=== PATIENT | female | born 2000 | race Caucasian/White ===

== ENCOUNTER 2023-09-09 12:45 | Inpatient (IN) | payer OTHER ==
[2023-09-09] MEDS: LACTATED RINGERS SOLUTION 500 ML IV ONE ×2 (14:00→17:00)
[2023-09-09 14:25] VITALS: BMI 29.2
[2023-09-09 14:50] LABS: BASO % 0.1 % (0-2.0); EOS % 1.1 % (0-4.5); HEMATOCRIT 31.2 % (32.4-45.2); HEMOGLOBIN 10.4 GM/dL (10.7-15.3); LYMPH % 14.3 % (8-40); MCH 30.3 pg (25.7-33.7); MCHC 33.4 g/dl (32.0-36.0); MEAN CELL VOLUME 90.7 fl (80-96); MEAN PLT VOLUME 7.7 fl (7.5-11.1); NEUT % 74.5 % (42.8-82.8); PLATELET COUNT 244 10^3/uL (134-434); RBC 3.44 M/mm3 (3.60-5.2); RDW 16.5 % (11.6-15.6); WHITE BLOOD COUNT 8.6 K/mm3 (4.0-10.0)
[2023-09-09 15:07] LABS: POTASSIUM 4.2 mmol/L (3.5-5.1)
[2023-09-09 15:08] LABS: CALCIUM 8.7 mg/dL (8.5-10.1)
[2023-09-09 15:09] LABS: BLOOD UREA NITROGEN 4.7 mg/dL (7-18)
[2023-09-09 15:13] LABS: CREATININE 0.4 mg/dL (0.55-1.3)
[2023-09-09] MEDS ORDERED: PENICILLIN G POTASSIUM 5,000,000 UNIT/250 ML BAG IVPB ONE (15:13)
[2023-09-09 15:21] LABS: INR 0.99 (0.83-1.09); PROTHROMBIN TIME (PATIENT) 11.2 SEC (9.7-13.0)
[2023-09-09 15:24] LABS: ACTIVATED PTT 24.2 SECONDS (25.2-36.5)
[2023-09-09] MEDS: PENICILLIN G POTASSIUM 5,000,000 (5Mm) UNIT VIAL IVPB ONE (15:25)
[2023-09-09 16:03] LABS: HIV INTERPRETATION NEGATIVE (NEGATIVE)
[2023-09-09] MEDS ORDERED: MAGNESIUM 4GM/H20 - 4 GM/100 ML IVPB IVPB ONE (16:11)
[2023-09-09] MEDS ORDERED: MAGNESIUM SULFATE 20GM/500ML - 20 GM/500 ML INFUS.BAG ONE (16:11)
[2023-09-09] MEDS: MAGNESIUM 4GM/H20 - 4 GM/100 ML IVPB IVPB ONE (16:25)
[2023-09-09] MEDS ORDERED: LACTATED RINGERS SOLUTION 1,000 ML IV SCH (17:00)
[2023-09-09] MEDS: MAGNESIUM SULFATE 20GM/500ML - 20 GM/500 ML INFUS.BAG IVPB SCH (17:00)
[2023-09-09 17:52] VITALS: BP 125/75; PULSE 98; RESP 18; TEMP 98.8
== END 2023-09-09 18:05 | disposition short-term general hospital (02) | DRG 563 ==
LOC: JDEL 12:45 → JLDR 13:56
PROVIDERS: ADMIT Obstetrics & Gynecology; ATTEND Obstetrics & Gynecology
DX: O60.03 Preterm labor without delivery, third trimester (principal); Z3A.29 29 weeks gestation of pregnancy
CPT/HCPCS: 36415; 76819-TC; 80048; 85025; 85384; 85610; 85730; 86780; 86850; 86900; 86901; 87389; 87635

== ENCOUNTER 2023-11-03 06:15 | Inpatient (IN) | payer OTHER ==
[2023-11-03] MEDS: CITRIC ACID/SODIUM CITRATE 30 ML UNIT-DOSE CUP PO ONE (08:00)
[2023-11-03] MEDS ORDERED: OXYTOCIN 30 UNITS in 0.9% NS 30 UNIT/500 ML INFUS.BAG IVPB ONE (08:00)
[2023-11-03] MEDS: DEXTROSE 5%-LACTATED RINGERS 1,000 ML IV SCH (08:00)
[2023-11-03] MEDS ORDERED: METOCLOPRAMIDE HCL INJECTION 10 MG/2 ML VIAL ONE (08:02)
[2023-11-03] MEDS ORDERED: DEXAMETHASONE SOD PHOSPHATE 4 MG/1 ML VIAL ONE (08:02)
[2023-11-03] MEDS ORDERED: FENTANYL CITRATE/PF 50 MCG/ML VIAL ONE (08:02)
[2023-11-03] MEDS ORDERED: ceFAZolin SODIUM 1 GM VIAL ONE (08:02)
[2023-11-03] MEDS ORDERED: PHENYLEPHRINE HCL 10 MG/1 ML SINGLE DOSE VIAL ONE (08:02)
[2023-11-03] MEDS ORDERED: morphine SULFATE/PF 1 MG/2 ML (2cc Syringe - QUVA) ONE (08:02)
[2023-11-03] MEDS ORDERED: ONDANSETRON 4 MG/2 ML VIAL ONE (08:02)
[2023-11-03 08:09] VITALS: BMI 32.1
[2023-11-03 09:58] LABS: CORD BASE EXCESS -4.7 mmol/L (0-2); CORD HCO3 21.4 mmHg (20-29); CORD PCO2 43.1 mmHg (30-78); CORD pH 7.314 (7.14-7.44)
[2023-11-03 10:02] LABS: CORD HCO3 23.7 mmHg (20-29); CORD PCO2 56.2 mmHg (30-78); CORD pH 7.243 (7.14-7.44)
[2023-11-03] MEDS ORDERED: KETOROLAC TROMETHAMINE 30 MG/1 ML VIAL ONE (10:08)
[2023-11-03] MEDS ORDERED: OXYTOCIN 20 UNITS in 0.9% NS 20 UNIT/1,000 ML INFUS.BAG IV ONE (10:21)
[2023-11-03] MEDS ORDERED: ONDANSETRON 4 MG/2 ML VIAL IVPUSH PRN (10:29)
[2023-11-03] MEDS: OXYTOCIN 20 UNITS in 0.9% NS 20 UNIT/1,000 ML INFUS.BAG IV SCH (10:40)
[2023-11-03] MEDS ORDERED: ACETAMINOPHEN 325 MG TABLET (FP) PO PRN (10:40)
[2023-11-03] MEDS: morphine SULFATE/PF 1 MG/2 ML (2cc Syringe - QUVA) IT ONE (13:03)
[2023-11-03 15:11] LABS: HIV INTERPRETATION NEGATIVE (NEGATIVE)
[2023-11-03] MEDS ORDERED: oxyCODONE HCL 5 MG TABLET PO PRN (22:40)
[2023-11-04] MEDS: IBUPROFEN 600 MG TABLET (FP) PO PRN (01:11)
[2023-11-04 07:20] LABS: BASO % 0.2 % (0-2.0); EOS % 0.3 % (0-4.5); HEMATOCRIT 29.1 % (32.4-45.2); LYMPH % 16.4 % (8-40); MCH 31.2 pg (25.7-33.7); MCHC 34.5 g/dl (32.0-36.0); MEAN CELL VOLUME 90.3 fl (80-96); MEAN PLT VOLUME 8.3 fl (7.5-11.1); MONO % 8.5 % (3.8-10.2); NEUT % 74.6 % (42.8-82.8); PLATELET COUNT 176 10^3/uL (134-434); RBC 3.22 M/mm3 (3.60-5.2); RDW 14.6 % (11.6-15.6); WHITE BLOOD COUNT 11.2 K/mm3 (4.0-10.0)
[2023-11-04] MEDS: FERROUS SO4 325 MG TABLET (FP) PO SCH (16:46)
[2023-11-04] MEDS: DOCUSATE SODIUM 100 MG CAPSULE (FP) PO SCH (22:21)
[2023-11-04 22:52] VITALS: RESP 18
[2023-11-06 07:20] LABS: BASO % 0.5 % (0-2.0); EOS % 2.8 % (0-4.5); HEMATOCRIT 31.8 % (32.4-45.2); HEMOGLOBIN 10.9 GM/dL (10.7-15.3); LYMPH % 9.7 % (8-40); MCH 31.2 pg (25.7-33.7); MCHC 34.4 g/dl (32.0-36.0); MEAN CELL VOLUME 90.7 fl (80-96); MEAN PLT VOLUME 7.7 fl (7.5-11.1); MONO % 5.7 % (3.8-10.2); NEUT % 81.3 % (42.8-82.8); PLATELET COUNT 232 10^3/uL (134-434); RDW 15.3 % (11.6-15.6); WHITE BLOOD COUNT 10.7 K/mm3 (4.0-10.0)
[2023-11-06 08:29] VITALS: BP 127/79; PULSE 90; TEMP 98.7
== END 2023-11-06 15:11 | disposition home or self-care (01) | DRG 540 ==
LOC: JLDR 06:15 → J3W 13:10
PROVIDERS: ADMIT Obstetrics & Gynecology Maternal & Fetal Medicine; ATTEND Obstetrics & Gynecology Maternal & Fetal Medicine
PROC: 10D00Z1 Extraction of Products of Conception, Low, Open Approach (ICD-10-PCS; principal; 2023-11-03)
DX: O34.219 Maternal care for unspecified type scar from previous cesarean delivery (principal); O67.8 Other intrapartum hemorrhage; Z3A.37 37 weeks gestation of pregnancy; Z37.0 Single live birth
CPT/HCPCS: 36415; 36600; 59409; 80053; 82803; 85025; 85610; 85730; 86780; 86850; 86900; 86901; 87389; 88307-TC; 94010